=== PATIENT | female | born 1960 | race Caucasian/White ===

== ENCOUNTER → 2024-01-07 07:29 | Outpatient (REF) | payer BC, SELFPAY | LOC: HWRAD 07:29 | PROVIDERS: ATTENDING PHYSICIAN Physician Assistant | DX: Z78.0 Asymptomatic menopausal state (principal); Z13.820 Encounter for screening for osteoporosis | CPT/HCPCS: 77080 ==

== ENCOUNTER → 2024-10-14 08:04 | Outpatient (REF) | payer BC, SELFPAY | LOC: HWWDC 08:04 | PROVIDERS: ATTENDING PHYSICIAN Physician Assistant | DX: Z12.31 Encounter for screening mammogram for malignant neoplasm of breast (principal) | CPT/HCPCS: 77063; 77067 ==

== ENCOUNTER → 2024-10-21 08:25 | Outpatient (REF) | payer BC, SELFPAY | LOC: WDC 08:25 | PROVIDERS: ATTENDING PHYSICIAN Physician Assistant | DX: R92.8 Other abnormal and inconclusive findings on diagnostic imaging of breast (principal) | CPT/HCPCS: 77065 ==

== ENCOUNTER → 2024-10-28 07:39 | Outpatient (REF) | payer BC, SELFPAY ==
--- NOTE | 2024-10-28 09:03 | OID.BR.INTR ---
[facility] Breast Navigator - Initial
- -
Date of Contact: 10/28/24
Met with patient. Patient given written information on navigator services available at [facility]. Will follow up as needed per protocol.
== END ==
LOC: WDC 07:39
PROVIDERS: ATTENDING PHYSICIAN Physician Assistant
DX: R92.1 Mammographic calcification found on diagnostic imaging of breast (principal)
CPT/HCPCS: 88305; 19081; 76098; 88341; 88342; 88360; A4648

== ENCOUNTER → 2024-11-20 09:54 | Outpatient (REF) | payer BC, SELFPAY | LOC: WDC 09:54 | PROVIDERS: ATTENDING PHYSICIAN Surgery | DX: D05.91 Unspecified type of carcinoma in situ of right breast (principal) | CPT/HCPCS: 19281; A4648 ==

== ENCOUNTER 2024-11-21 06:30 | Day surgery (SDC) | payer BC, SELFPAY ==
[2024-11-18 08:56] LABS: Hematocrit 40.7 % (37.0-47.0); Hemoglobin 13.7 g/dL (12.0-16.0); Mean Corp Hgb Conc. 33.7 g/dL (33.0-37.0); Mean Corpuscular Hgb 30.4 pg (27.0-31.0); Mean Corpuscular Volume 90.4 fL (81.0-99.0); Mean Platelet Volume 10.4 fL (7.4-10.4); Platelet Count 209 10^3/uL (130-400); Red Cell Dist. Width 12.9 % (11.5-14.5); White Blood Cell Count 5.7 10^3/uL (4.8-10.8)
[2024-11-18 09:52] LABS: ALT (SGPT) 34 U/L (0-35); AST (SGOT) 33 U/L (14-36); Albumin 4.5 g/dl (3.5-5.0); Alkaline Phosphatase 73 U/L (38-126); Blood Urea Nitrogen 13 mg/dl (7-17); Calcium 9.5 mg/dl (8.4-10.2); Carbon Dioxide 27 mmol/L (22-30); Chloride 104 mmol/L (98-107); Glucose 89 mg/dl (70-99); Potassium 4.2 mmol/L (3.5-5.1); Sodium 139 mmol/L (135-145); Total Bilirubin 1.3 mg/dl (0.2-1.3); Total Protein 7.6 g/dl (6.3-8.2); eGFR > 60.00
[2024-11-18 09:57] LABS: Prealbumin (Transthyretin) 22.9 mg/dl (17.6-36.0)
[2024-11-18 14:01] VITALS: BMI 22.7
[2024-11-21] VITALS (8 sets, daily range): BP systolic 113–148; BP diastolic 58–84; BMI 22.7
[2024-11-21] MEDS: TYLENOL 1000 MG PO (08:31)
[2024-11-21] MEDS: NORMOSOL-R/PLASMALYTE-A 1000 IV (08:31)
[2024-11-21] MEDS: LOVENOX 40 MG SC (09:29)
[2024-11-21 11:37] LABS: INR 1.76; PT 20.7 Sec (11.4-14.6)
[2024-11-21 11:38] LABS: APTT 55.5 Sec (23.4-35.0)
--- NOTE | 2024-11-21 12:07 | W.IMMPOSTOP ---
Surgical Immed Post Op Note
-
Primary Surgeon: Alannah
Assisting Surgeon: None
Pre-op Diagnosis: Right breast DCIS
Post-op Diagnosis: Right breast DCIS
Procedure Performed: Right localized lumpectomy
Anesthesia Type: TIVA
Specimen / Cultures: Right lumpectomy, margins
Estimated Blood Loss: 50cc
Complications: None
Operative Findings: Clip, reflector and calcs in speciment
--- NOTE | 2024-11-21 12:08 | OR.RPT ---
Operative Report
Operative Report
Operative date: 11/21/24
Pre-Op DX: Right breast DCIS
Post-Op DX: Right breast DCIS
Surgeon: Alannah
The patient is a 63-year-old female who had image-detected DCIS of the right breast who presents for breast conservation surgery. On the day prior to the procedure the patient presented to the [facility] where a [employer] activities director scouting reflector was
placed in the appropriate area. On the day of surgery she presented to the same-day surgical area and verified site and procedure. She was prepped and DVT and antibiotic prophylaxis were provided. She was transferred to the operating room.
In the supine position intravenous sedation was delivered. The right breast was prepped and draped in usual sterile fashion. All tissues were anesthetized with 1% lidocaine plain. A curvilinear incision was made overlying the area of highest
external gamma count. Dissection was carried down the appropriate area using the cautery. The patient had an excessive amount of bleeding requiring cauterization control with suture ligatures. An intraoperative PT/ PTT level was sent and the PT
was elevated at 20. She had no prior history of any bleeding dyscrasias. After the removal of the lumpectomy the specimen was oriented for the pathologist and specimen radiography confirmed the presence of clip, reflector, and calcifications
within it. Additional margins were harvested from the following dimensions posterior, medial, superior, lateral, inferior, and anterior. These were oriented as well and sent for permanent analysis. Again hemostasis was meticulously maintained.
Marcaine 0.5% plain was instilled and hemoclips were placed in the resection cavity. An oncoplastic closure was not enacted due to the excessive bleeding that had occurred. The wound was closed using simple interrupted 3-0 plain on deep
intermediate and subcutaneous tissue and skin was closed with a running subcuticular 4-0 Monocryl.
A sterile compressive dressing was applied. All sponge needle and instrument counts were correct and the patient was transferred to the recovery room in stable condition
([id number])
[2024-11-21] MEDS: SUBLIMAZE 25 MCG IV (12:24)
[2024-11-21] MEDS: ROXICODONE 5 MG PO (13:28)
== END 2024-11-21 14:17 | disposition home or self-care (01) ==
LOC: SDS 06:30
PROVIDERS: ATTENDING PHYSICIAN Surgery; FAMILY PHYSICIAN Physician Assistant
DX: D05.11 Intraductal carcinoma in situ of right breast (principal); Z17.0 Estrogen receptor positive status [ER+]
CPT/HCPCS: 19301; 88305; 88307; 36415; 76098; 80053; 82306; 84134; 85027; 85610; 85730; 88341; 88342; 93005; A4648; L8000

== ENCOUNTER 2025-01-26 05:56 | Outpatient (RCR) | payer BC, SELFPAY | END 2025-01-26 23:59 | disposition home or self-care (01) | LOC: RPT 05:56 | PROVIDERS: ATTENDING PHYSICIAN Radiology Radiation Oncology; FAMILY PHYSICIAN Physician Assistant | DX: D05.11 Intraductal carcinoma in situ of right breast (principal); M81.0 Age-related osteoporosis without current pathological fracture; R53.0 Neoplastic (malignant) related fatigue; Z73.6 Limitation of activities due to disability; M62.81 Muscle weakness (generalized); Z92.3 Personal history of irradiation | CPT/HCPCS: 97163; 97530 ==

== ENCOUNTER 2025-02-24 09:51 | Outpatient (RCR) | payer BC, SELFPAY | END 2025-02-24 23:59 | disposition home or self-care (01) | LOC: RPT 09:51 | PROVIDERS: ATTENDING PHYSICIAN Radiology Radiation Oncology; FAMILY PHYSICIAN Physician Assistant | DX: D05.11 Intraductal carcinoma in situ of right breast (principal); M81.0 Age-related osteoporosis without current pathological fracture; R53.0 Neoplastic (malignant) related fatigue; Z73.6 Limitation of activities due to disability; M62.81 Muscle weakness (generalized); Z92.3 Personal history of irradiation | CPT/HCPCS: 97110; 97112; 97140; 97530 ==

== ENCOUNTER 2025-03-26 07:48 | Outpatient (RCR) | payer BC, SELFPAY | END 2025-03-26 23:59 | disposition home or self-care (01) | LOC: RPT 07:48 | PROVIDERS: ATTENDING PHYSICIAN Radiology Radiation Oncology; FAMILY PHYSICIAN Physician Assistant | DX: D05.11 Intraductal carcinoma in situ of right breast (principal); M81.0 Age-related osteoporosis without current pathological fracture; R53.0 Neoplastic (malignant) related fatigue; Z73.6 Limitation of activities due to disability; M62.81 Muscle weakness (generalized); Z92.3 Personal history of irradiation | CPT/HCPCS: 97110; 97112; 97140; 97530 ==

== ENCOUNTER 2025-04-27 12:48 | Outpatient (RCR) | payer BC, SELFPAY | END 2025-04-27 23:59 | disposition home or self-care (01) | LOC: RPT 12:48 | PROVIDERS: ATTENDING PHYSICIAN Radiology Radiation Oncology; FAMILY PHYSICIAN Physician Assistant | DX: D05.11 Intraductal carcinoma in situ of right breast (principal); M81.0 Age-related osteoporosis without current pathological fracture; R53.0 Neoplastic (malignant) related fatigue; Z73.6 Limitation of activities due to disability; M62.81 Muscle weakness (generalized); Z92.3 Personal history of irradiation | CPT/HCPCS: 97110; 97112; 97140; 97530 ==

== ENCOUNTER 2025-05-28 11:03 | Outpatient (RCR) | payer BC, SELFPAY | END 2025-05-28 23:59 | disposition home or self-care (01) | LOC: RPT 11:03 | PROVIDERS: ATTENDING PHYSICIAN Radiology Radiation Oncology; FAMILY PHYSICIAN Physician Assistant | DX: D05.11 Intraductal carcinoma in situ of right breast (principal); M81.0 Age-related osteoporosis without current pathological fracture; R53.0 Neoplastic (malignant) related fatigue; Z73.6 Limitation of activities due to disability; M62.81 Muscle weakness (generalized); Z92.3 Personal history of irradiation | CPT/HCPCS: 97110; 97140; 97530 ==

== ENCOUNTER 2025-06-30 14:42 | Outpatient (RCR) | payer BC, SELFPAY | END 2025-06-30 23:59 | disposition home or self-care (01) | LOC: RPT 14:42 | PROVIDERS: ATTENDING PHYSICIAN Radiology Radiation Oncology; FAMILY PHYSICIAN Physician Assistant | DX: D05.11 Intraductal carcinoma in situ of right breast (principal); M81.0 Age-related osteoporosis without current pathological fracture; R53.0 Neoplastic (malignant) related fatigue; Z73.6 Limitation of activities due to disability; M62.81 Muscle weakness (generalized); Z92.3 Personal history of irradiation | CPT/HCPCS: 97110; 97530 ==

== ENCOUNTER 2025-07-28 08:25 | Outpatient (RCR) | payer BC, SELFPAY | END 2025-07-29 05:55 | disposition home or self-care (01) | LOC: RPT 08:25 | PROVIDERS: ATTENDING PHYSICIAN Radiology Radiation Oncology; FAMILY PHYSICIAN Physician Assistant | DX: D05.11 Intraductal carcinoma in situ of right breast (principal); M81.0 Age-related osteoporosis without current pathological fracture; R53.0 Neoplastic (malignant) related fatigue; Z73.6 Limitation of activities due to disability; M62.81 Muscle weakness (generalized); Z92.3 Personal history of irradiation | CPT/HCPCS: 97110; 97530 ==

== ENCOUNTER → 2025-08-28 12:45 | Outpatient (REF) | payer BC, SELFPAY | LOC: WDC 12:45 | PROVIDERS: ATTENDING PHYSICIAN Family Medicine Geriatric Medicine; FAMILY PHYSICIAN Physician Assistant | DX: R92.2 Inconclusive mammogram (principal); Z85.3 Personal history of malignant neoplasm of breast; Z12.39 Encounter for other screening for malignant neoplasm of breast | CPT/HCPCS: 76641 ==